=== PATIENT | male | born 1985 | race Two or more races ===

== ENCOUNTER 2016-12-05 16:29 | Emergency (ER) | payer MEDICAID, OTHER ==
[~2016-12-05] VITALS: Ht 177.8 cm; Wt 81.6 kg
[2016-12-05 16:29] VITALS: BP 132/88
== END 2016-12-05 19:13 | disposition home or self-care (01) ==
LOC: ER 16:31
DX: M54.5 Low back pain (principal); M54.2 Cervicalgia; M54.6 Pain in thoracic spine; M25.512 Pain in left shoulder; V43.52XA Car driver injured in collision with other type car in traffic accident, initial encounter; Y93.89 Activity, other specified; Y92.488 Other paved roadways as the place of occurrence of the external cause; Y99.8 Other external cause status
CPT/HCPCS: 72074-TC; 72110-TC; A4606; Z7610

== ENCOUNTER 2019-01-03 22:06 | Emergency (ER) | payer MEDICAID, OTHER ==
[~2019-01-03] VITALS: Ht 180.3 cm; Wt 93.0 kg
[2019-01-03 22:18] VITALS: BP 163/101
== END 2019-01-03 23:09 | disposition home or self-care (01) ==
LOC: ER 22:08
DX: R04.0 Epistaxis (principal); F14.90 Cocaine use, unspecified, uncomplicated